=== PATIENT | female | born 1980 | race Caucasian/White ===

== ENCOUNTER 2018-02-26 17:02 | Emergency (ER) | payer BC ==
[~2018-02-26] VITALS: Ht 170.2 cm; Wt 64.0 kg
[~2018-02-26 17:02] MED LIST: CARV3.122 PO; OMEP-110 PO; PRED2.5T PO; SUMA50TA4 PO; xarelto
[2018-02-26 18:00] LABS: BASOPHILS # (AUTO) 0.02 x10^3/uL (0-0.1); BASOPHILS % (AUTO) 0 % (0-1); EOSINOPHILS # (AUTO) 0.07 x10^3/uL (0-0.4); EOSINOPHILS % (AUTO) 1 % (1-7); LYMPHOCYTES # (AUTO) 3.11 x10^3/uL (1-3.4); LYMPHOCYTES % (AUTO) 30 % (22-44); MD NO; MEAN CORPUSCULAR HEMOGLOBIN 32.2 pg (27.0-34.8); MEAN CORPUSCULAR HGB CONC 33.4 g/dL (32.4-35.8); MEAN CORPUSCULAR VOLUME 96.3 fL (80-100); MEAN PLATELET VOLUME 8.4 fL (7.4-10.4); MONOCYTES # (AUTO) 0.77 x10^3/uL (0.2-0.8); MONOCYTES % (AUTO) 7 % (2-9); NEUTROPHILS # (AUTO) 6.57 x10^3/uL (1.8-6.8); NEUTROPHILS % (AUTO) 62 % (42-75); PLATELET COUNT 231 x10^3/uL (130-400); RED BLOOD COUNT 4.87 x10^6/uL (3.82-5.3); RED CELL DISTRIBUTION WIDTH 13.8 % (9.6-15.2)
[2018-02-26 18:11] LABS: ALANINE AMINOTRANSFERASE 18 U/L (12-78); ALBUMIN 3.7 g/dL (3.4-5.0); ANION GAP 7 mmol/L (5-15); CALCIUM 8.7 mg/dL (8.5-10.1); CHLORIDE 107 mmol/L (98-107); CREATININE 0.59 mg/dL (0.55-1.02)
[2018-02-26 18:16] LABS: ALKALINE PHOSPHATASE 49 U/L (45-117); BILIRUBIN,TOTAL 0.8 mg/dL (0.2-1.0); TOTAL PROTEIN 7.3 g/dL (6.4-8.2)
[2018-02-26] MEDS ORDERED: OMNIPAQUE 350 MG/ML, 100ML BOTTLE ONE ×2 (18:55→20:09)
[2018-02-26 19:09] VITALS: BP 118/96
[2018-02-26] MEDS ORDERED: HYDROcodone/APAP 5/325 TABLET ONE (19:35)
[2018-02-26] MEDS ORDERED: HYDROcodone/APAP 5/325 TABLET PO ONE (20:00)
== END 2018-02-26 20:00 | disposition home or self-care (01) ==
LOC: ED 19:55
DX: S20.211A Contusion of right front wall of thorax, initial encounter (principal); S60.211A Contusion of right wrist, initial encounter; S60.221A Contusion of right hand, initial encounter; S30.1XXA Contusion of abdominal wall, initial encounter; I10 Essential (primary) hypertension; I48.91 Unspecified atrial fibrillation; I25.2 Old myocardial infarction; F31.9 Bipolar disorder, unspecified; F17.200 Nicotine dependence, unspecified, uncomplicated; Y04.0XXA Assault by unarmed brawl or fight, initial encounter; Y93.89 Activity, other specified; Y92.098 Other place in other non-institutional residence as the place of occurrence of the external cause; Y99.8 Other external cause status
CPT/HCPCS: 36415; 71046; 73110; 73130; 74177; 80053; 84702; 85025; 99285; Q9967

== ENCOUNTER 2018-05-01 11:28 | Inpatient (IN) | payer BC ==
[~2018-05-01] VITALS: Ht 172.7 cm; Wt 66.2 kg
[2018-05-01 12:26] LABS: BASOPHILS # (AUTO) 0.05 x10^3/uL (0-0.1); BASOPHILS % (AUTO) 0 % (0-1); EOSINOPHILS # (AUTO) 0.02 x10^3/uL (0-0.4); EOSINOPHILS % (AUTO) 0 % (1-7); LYMPHOCYTES # (AUTO) 2.16 x10^3/uL (1-3.4); LYMPHOCYTES % (AUTO) 13 % (22-44); MD NO; MEAN CORPUSCULAR HEMOGLOBIN 33.2 pg (27.0-34.8); MEAN CORPUSCULAR HGB CONC 34.9 g/dL (32.4-35.8); MEAN PLATELET VOLUME 8.8 fL (7.4-10.4); MONOCYTES # (AUTO) 1.39 x10^3/uL (0.2-0.8); MONOCYTES % (AUTO) 8 % (2-9); NEUTROPHILS # (AUTO) 13.49 x10^3/uL (1.8-6.8); NEUTROPHILS % (AUTO) 79 % (42-75); PLATELET COUNT 247 x10^3/uL (130-400); RED BLOOD COUNT 4.91 x10^6/uL (3.82-5.3); RED CELL DISTRIBUTION WIDTH 12.9 % (9.6-15.2)
[2018-05-01] MEDS ORDERED: METOPROLOL 1 MG/ML, 5ML IVPush PRN (12:30)
[2018-05-01] MEDS ORDERED: SODIUM CHLORIDE 0.9% 1,000ML IVBOLUS ONE (12:30)
[2018-05-01] MEDS ORDERED: KETOROLAC 30 MG/1 ML IVPush ONE (12:30)
[2018-05-01] MEDS ORDERED: MORPHINE SULFATE 4 MG/ML, 1ML IVPush PRN (12:30)
[2018-05-01 12:38] LABS: ANION GAP 10 mmol/L (5-15); CALCIUM 8.9 mg/dL (8.5-10.1); CHLORIDE 100 mmol/L (98-107); CREATININE 0.56 mg/dL (0.55-1.02)
[2018-05-01 12:42] LABS: TROPONIN I < 0.015 ng/mL (0.000-0.045)
[2018-05-01] MEDS ORDERED: MORPHINE SULFATE 4 MG/ML, 1ML ONE (12:52)
[2018-05-01] MEDS ORDERED: METOPROLOL 1 MG/ML, 5ML ONE (12:52)
[2018-05-01] MEDS ORDERED: KETOROLAC 30 MG/1 ML ONE (12:52)
[2018-05-01] MEDS ORDERED: POTASSIUM CHLORIDE 20 MEQ TAB.ER.PRT PO ONE ×2 (13:00→15:30)
[2018-05-01] MEDS ORDERED: OMNIPAQUE 350 MG/ML, 100ML BOTTLE ONE (13:20)
[2018-05-01] MEDS ORDERED: HEPARIN 5,000 UNITS/ML, 1ML IV ONE (14:00)
[2018-05-01] MEDS ORDERED: HEPARIN 5,000 UNITS/ML, 1ML ONE (14:06)
[2018-05-01] MEDS ORDERED: ASPI-496 PO (14:15)
[2018-05-01] MEDS ORDERED: AMLO2.5T PO (14:17)
[2018-05-01] MEDS ORDERED: HEPARIN 25,000 UNITS/500ML PMX 500 ML ONE (14:26)
[2018-05-01] MEDS: HEPARIN 25,000 UNITS/500ML PMX 500 ML IV PRN (14:36)
[2018-05-01] MEDS ORDERED: TEMAZEPAM 15 MG CAPSULE PO PRN (15:00)
[2018-05-01] MEDS ORDERED: ONDANSETRON 2MG/ML, 2ML IVPush PRN (15:00)
[2018-05-01] MEDS ORDERED: hydrALAzine 20 MG/ML, 1ML IVPush PRN (15:00)
[2018-05-01] MEDS ORDERED: ACETAMINOPHEN 325 MG TABLET PO PRN (15:00)
[2018-05-01] MEDS ORDERED: HYDROcodone/APAP 5/325 TABLET PO PRN (15:00)
[2018-05-01] MEDS ORDERED: POTASSIUM CHLORIDE 20 MEQ TAB.ER.PRT ONE ×2 (15:26→21:04)
[2018-05-01] MEDS ORDERED: SODIUM CHLORIDE 0.9% 1,000 ML IV SCH (15:30)
[2018-05-01 17:02] VITALS: BP 106/73
[2018-05-01] MEDS: morphine SULFATE 10 MG/ML, 1ML IVPush PRN ×2 (17:14→23:44)
[2018-05-01] MEDS: DILTIAZEM 30 MG TABLET PO SCH ×2 (17:15→22:42)
[2018-05-01] MEDS: NICOTINE 21 MG/24 HR PATCH.TD24 TD SCH (17:15)
[2018-05-01] MEDS: HEPARIN 5,000 UNITS/ML, 1ML IV PRN (21:30)
[2018-05-01 21:49] VITALS: BP 99/77
[2018-05-01 22:04] LABS: CULTURE INDICATED? YES; MICROSCOPIC INDICATED
[2018-05-02 02:14] VITALS: BP 92/72
[2018-05-02] MEDS: DILTIAZEM 30 MG TABLET PO SCH ×4 (03:30→21:14)
[2018-05-02 06:14] LABS: ANION GAP 9 mmol/L (5-15); CHLORIDE 104 mmol/L (98-107); CREATININE 0.33 mg/dL (0.55-1.02)
[2018-05-02 06:58] VITALS: BP 102/72
[2018-05-02] MEDS: morphine SULFATE 10 MG/ML, 1ML IVPush PRN ×2 (09:07→20:28)
[2018-05-02] MEDS: HEPARIN 5,000 UNITS/ML, 1ML IV PRN (10:22)
[2018-05-02] MEDS: KETOROLAC 30 MG/1 ML IVPush PRN (11:34)
[2018-05-02 12:20] VITALS: BP 99/77
[2018-05-02] MEDS: NICOTINE 21 MG/24 HR PATCH.TD24 TD SCH (15:47)
[2018-05-02 15:51] VITALS: BP 99/75
[2018-05-02] MEDS: HEPARIN 25,000 UNITS/500ML PMX 500 ML IV PRN (18:09)
[2018-05-02 18:44] VITALS: BP 99/65
[2018-05-02] MEDS ORDERED: NITROGLYCERIN 0.4 MG BOTTLE (25 TABS) SL PRN (21:30)
[2018-05-02] MEDS ORDERED: BENZONATATE 100 MG CAPSULE PO PRN (22:00)
[2018-05-03] MEDS: HEPARIN 5,000 UNITS/ML, 1ML IV PRN (00:23)
[2018-05-03 03:10] VITALS: BP 108/78
[2018-05-03] MEDS: DILTIAZEM 30 MG TABLET PO SCH ×4 (03:24→21:44)
[2018-05-03] MEDS: morphine SULFATE 10 MG/ML, 1ML IVPush PRN ×5 (04:37→21:44)
[2018-05-03 06:55] VITALS: BP 118/82
[2018-05-03] MEDS: NICOTINE 21 MG/24 HR PATCH.TD24 TD SCH (12:59)
[2018-05-03 15:33] VITALS: BP 98/61
[2018-05-03] MEDS: HEPARIN 25,000 UNITS/500ML PMX 500 ML IV PRN (18:11)
[2018-05-03 19:09] VITALS: BP 108/74
[2018-05-04 00:43] VITALS: BP 110/81
[2018-05-04] MEDS: morphine SULFATE 10 MG/ML, 1ML IVPush PRN ×3 (00:45→08:35)
[2018-05-04] MEDS: DILTIAZEM 30 MG TABLET PO SCH ×4 (04:03→22:10)
[2018-05-04 06:48] VITALS: BP 94/71
[2018-05-04] MEDS ORDERED: MORPHINE SULFATE 4 MG/ML, 1ML IVPush PRN (13:30)
[2018-05-04 13:38] VITALS: BP 104/80
[2018-05-04] MEDS ORDERED: APIXABAN 5 MG TABLET ONE (15:33)
[2018-05-04] MEDS: NICOTINE 21 MG/24 HR PATCH.TD24 TD SCH (15:35)
[2018-05-04] MEDS: APIXABAN 5 MG TABLET PO SCH (15:35)
[2018-05-04] MEDS: KETOROLAC 30 MG/1 ML IVPush PRN ×2 (15:45→23:36)
[2018-05-04 18:38] VITALS: BP 103/72
[2018-05-04] MEDS: CEFDINIR 300 MG CAPSULE PO SCH (22:10)
[2018-05-05 00:21] VITALS: BP 105/75
[2018-05-05] MEDS: DILTIAZEM 30 MG TABLET PO SCH ×2 (04:04→09:52)
[2018-05-05 07:35] VITALS: BP 112/80
[2018-05-05] MEDS: CEFDINIR 300 MG CAPSULE PO SCH (09:52)
[2018-05-05] MEDS: APIXABAN 5 MG TABLET PO SCH (09:52)
[2018-05-05] MEDS ORDERED: KETOROLAC 10MG TABLET PO PRN (10:00)
[2018-05-05] MEDS ORDERED: DILT120C2 PO (13:17)
[2018-05-05] MEDS ORDERED: CEFD300C37 PO (13:17)
[2018-05-05] MEDS ORDERED: KETO10TA PO (13:17)
[2018-05-05] MEDS ORDERED: NICO-487 TD (13:17)
[2018-05-05] MEDS ORDERED: APIX5TAB PO (13:17)
== END 2018-05-05 14:29 | disposition home or self-care (01) | DRG 308 ==
LOC: ED 13:42 → EDIP 14:26 → SUATTDRO 14:40 → 5SO 16:04
PROVIDERS: ADMIT Internal Medicine; ATTEND Internal Medicine
DX: I48.0 Paroxysmal atrial fibrillation (principal); I26.99 Other pulmonary embolism without acute cor pulmonale; N39.0 Urinary tract infection, site not specified; I25.2 Old myocardial infarction; I10 Essential (primary) hypertension; F31.9 Bipolar disorder, unspecified; F17.200 Nicotine dependence, unspecified, uncomplicated; E87.6 Hypokalemia; I48.2 Chronic atrial fibrillation; I73.00 Raynaud's syndrome without gangrene; J44.9 Chronic obstructive pulmonary disease, unspecified; K21.9 Gastro-esophageal reflux disease without esophagitis; M32.9 Systemic lupus erythematosus, unspecified; Z82.49 Family history of ischemic heart disease and other diseases of the circulatory system; Z88.1 Allergy status to other antibiotic agents; Z88.5 Allergy status to narcotic agent; Z88.8 Allergy status to other drugs, medicaments and biological substances; F15.10 Other stimulant abuse, uncomplicated
CPT/HCPCS: 36415; 71046; 71275; 80048; 81001; 82040; 83605; 84145; 84484; 85025; 85520; 87040; 87070; 87086; 87205; 93005; 93306; 96374; 96375; 99291; J1644; J1885; Q9967; J2270; J7030

== ENCOUNTER 2018-07-27 01:17 | Emergency (ER) | payer BC ==
[~2018-07-27] VITALS: Ht 172.7 cm; Wt 61.8 kg
[~2018-07-27 01:17] MED LIST changes: +AMLO2.5T3 PO; +APIX5TAB PO; +ASPI-496 PO; +CEFD300C37 PO; +DILT120C2 PO; +KETO10TA PO; +NICO-487 TD
[2018-07-27] MEDS ORDERED: SODIUM CHLORIDE 0.9% 1,000ML IVBOLUS ONE (02:30)
[2018-07-27] MEDS ORDERED: SODIUM CHLORIDE FLUSH 10ML SYR IVF ONE (02:30)
[2018-07-27 02:53] LABS: BASOPHILS # (AUTO) 0.02 x10^3/uL (0-0.1); BASOPHILS % (AUTO) 1 % (0-1); EOSINOPHILS # (AUTO) 0.02 x10^3/uL (0-0.4); EOSINOPHILS % (AUTO) 0 % (1-7); LYMPHOCYTES # (AUTO) 2.65 x10^3/uL (1-3.4); LYMPHOCYTES % (AUTO) 51 % (22-44); MD NO; MEAN CORPUSCULAR HEMOGLOBIN 34.5 pg (27.0-34.8); MEAN CORPUSCULAR HGB CONC 34.1 g/dL (32.4-35.8); MEAN CORPUSCULAR VOLUME 101.1 fL (80-100); MEAN PLATELET VOLUME 8.1 fL (7.4-10.4); MONOCYTES # (AUTO) 0.43 x10^3/uL (0.2-0.8); MONOCYTES % (AUTO) 8 % (2-9); NEUTROPHILS # (AUTO) 2.13 x10^3/uL (1.8-6.8); NEUTROPHILS % (AUTO) 41 % (42-75); PLATELET COUNT 166 x10^3/uL (130-400); RED BLOOD COUNT 4.29 x10^6/uL (3.82-5.3); RED CELL DISTRIBUTION WIDTH 14.4 % (9.6-15.2)
[2018-07-27 03:02] LABS: ALANINE AMINOTRANSFERASE 99 U/L (12-78); ALBUMIN 3.1 g/dL (3.4-5.0); ANION GAP 12 mmol/L (5-15); CALCIUM 7.9 mg/dL (8.5-10.1); CHLORIDE 111 mmol/L (98-107)
[2018-07-27 03:06] LABS: ALKALINE PHOSPHATASE 73 U/L (45-117); BILIRUBIN,TOTAL 0.4 mg/dL (0.2-1.0); TOTAL PROTEIN 6.3 g/dL (6.4-8.2); TROPONIN I 0.038 ng/mL (0.000-0.045)
[2018-07-27] MEDS ORDERED: AMLO5TAB7 PO (03:32)
[2018-07-27 04:52] VITALS: BP 132/86
== END 2018-07-27 04:56 | disposition home or self-care (01) ==
LOC: ED 02:23
DX: I48.2 Chronic atrial fibrillation (principal); I25.2 Old myocardial infarction; I10 Essential (primary) hypertension; F31.9 Bipolar disorder, unspecified; F17.210 Nicotine dependence, cigarettes, uncomplicated; F12.10 Cannabis abuse, uncomplicated; R20.2 Paresthesia of skin; Z86.711 Personal history of pulmonary embolism
CPT/HCPCS: 36415; 70450; 71045; 80053; 84484; 85025; 93005; 96360; 99285; J7030

== ENCOUNTER 2018-11-10 12:51 | Emergency (ER) | payer SELFPAY ==
[~2018-11-10] VITALS: Ht 172.7 cm; Wt 63.0 kg
[~2018-11-10 12:51] MED LIST changes: +AMLO-150 PO; -AMLO2.5T3 PO; +AMLO2.5T5 PO
--- NOTE | 2018-11-10 13:20 | NUR ---
assumed care of pt. attempted to enter room to assess pt , pt in RAD
--- NOTE | 2018-11-10 13:26 | NUR ---
pt still in RAD
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
--- NOTE | 2018-11-10 14:05 | NUR ---
Lyndsay VITALE at bedside for recheck
--- NOTE | 2018-11-10 14:15 | NUR ---
attempted to enter room to D/C pt. pt refusing D/C. states that she is upset that her L ankle was not evaluated. Lyndsay VITALE notified and has returned to bedside for eval. pt now c/o pain and swelling to L ankle and hand and states that it needs to be evaluated.
--- NOTE | 2018-11-10 14:22 | NUR ---
xray at bedside
--- NOTE | 2018-11-10 14:48 | NUR ---
pt dozing. easily arousable. updated on POC
[2018-11-10 16:13] VITALS: BP 120/92
== END 2018-11-10 16:16 | disposition home or self-care (01) ==
LOC: ED 13:41
DX: S93.402A Sprain of unspecified ligament of left ankle, initial encounter (principal); S60.222A Contusion of left hand, initial encounter; B34.9 Viral infection, unspecified; I48.2 Chronic atrial fibrillation; I25.2 Old myocardial infarction; I10 Essential (primary) hypertension; X58.XXXA Exposure to other specified factors, initial encounter; Y93.89 Activity, other specified; Y92.89 Other specified places as the place of occurrence of the external cause; Y99.8 Other external cause status
CPT/HCPCS: 71046; 93005; 99283

== ENCOUNTER 2018-12-10 20:17 | Inpatient (IN) | payer OTHER ==
[~2018-12-10] VITALS: Ht 172.7 cm; Wt 63.2 kg
[2018-12-10] MEDS ORDERED: SODIUM CHLORIDE FLUSH 10ML SYR IVF ONE ×2 (20:30→23:00)
[2018-12-10 22:21] LABS: BASOPHILS # (AUTO) 0.03 x10^3/uL (0-0.1); BASOPHILS % (AUTO) 0 % (0-1); EOSINOPHILS # (AUTO) 0.08 x10^3/uL (0-0.4); EOSINOPHILS % (AUTO) 1 % (1-7); LYMPHOCYTES # (AUTO) 4.07 x10^3/uL (1-3.4); LYMPHOCYTES % (AUTO) 53 % (22-44); MD NO; MEAN CORPUSCULAR HGB CONC 33.2 g/dL (32.4-35.8); MEAN CORPUSCULAR VOLUME 102.2 fL (80-100); MEAN PLATELET VOLUME 8.5 fL (7.4-10.4); MONOCYTES # (AUTO) 0.64 x10^3/uL (0.2-0.8); MONOCYTES % (AUTO) 8 % (2-9); NEUTROPHILS # (AUTO) 2.85 x10^3/uL (1.8-6.8); NEUTROPHILS % (AUTO) 37 % (42-75); PLATELET COUNT 184 x10^3/uL (130-400); RED BLOOD COUNT 4.62 x10^6/uL (3.82-5.3); RED CELL DISTRIBUTION WIDTH 14.8 % (9.6-15.2)
--- NOTE | 2018-12-10 22:30 | NUR ---
PT IN GOWN IN [facility]. IV ACCESS ESTABLISHED. PT ATTACHED TO MEDICAL BILLER AND VS MACHINES. VSS. PT EDUCATED ON PLAN OF CARE, AND VERBALIZES UNDERSTANDING. CALL LIGHT IS WITHIN REACH AT THIS TIME.
[2018-12-10 22:32] LABS: ALBUMIN 3.1 g/dL (3.4-5.0); ANION GAP 5 mmol/L (5-15); CALCIUM 7.7 mg/dL (8.5-10.1); CHLORIDE 112 mmol/L (98-107); CREATININE 0.58 mg/dL (0.55-1.02)
[2018-12-10 22:36] LABS: TROPONIN I 0.104 ng/mL (0.000-0.045)
--- NOTE | 2018-12-10 22:59 | NUR ---
PT TO CT VIA [facility].
[2018-12-10] MEDS ORDERED: OMNIPAQUE 350 MG/ML, 100ML BOTTLE ONE (23:05)
[2018-12-10] MEDS ORDERED: ONDANSETRON ODT 4 MG ONE (23:08)
[2018-12-10] MEDS ORDERED: ONDANSETRON 2MG/ML, 2ML IVPush ONE (23:30)
--- NOTE | 2018-12-11 00:01 | NUR ---
PT VSS AND UPDATED IN EMR.
[2018-12-11] MEDS ORDERED: Enoxaparin 1 mg/kg protocol SQ SCH (00:30)
[2018-12-11] MEDS ORDERED: NITROGLYCERIN 0.4 MG BOTTLE (25 TABS) SL PRN (00:30)
[2018-12-11] MEDS ORDERED: ACETAMINOPHEN 325 MG TABLET PO PRN (00:30)
[2018-12-11] MEDS ORDERED: LABETALOL 5MG/ML, 20ML IVPush SCH (00:30)
[2018-12-11] MEDS ORDERED: LISINOPRIL 5 MG TABLET PO ONE (00:30)
[2018-12-11 00:55] LABS: TROPONIN I 0.103 ng/mL (0.000-0.045)
[2018-12-11] MEDS ORDERED: CHLORDIAZEPOXIDE 25 MG CAPSULE PO PRN (01:00)
[2018-12-11] MEDS ORDERED: POTASSIUM CHLORIDE 20 MEQ TAB.ER.PRT PO ONE (01:00)
[2018-12-11] MEDS: LABETALOL 5 MG/ML SYRINGE IVPush SCH ×3 (01:00→15:49)
[2018-12-11] MEDS ORDERED: LISINOPRIL 5 MG TABLET ONE (01:41)
[2018-12-11] MEDS ORDERED: ENOXAPARIN 60 MG/0.6 ML ONE ×2 (01:41→12:33)
[2018-12-11] MEDS ORDERED: POTASSIUM CHLORIDE 20 MEQ TAB.ER.PRT ONE (01:41)
[2018-12-11] MEDS ORDERED: ENOXAPARIN 60 MG/0.6 ML SQ SCH ×2 (02:30→12:30)
--- NOTE | 2018-12-11 02:30 | NUR ---
PT PROVIDED SANDWICH FROM [employer] PER REQUEST
--- NOTE | 2018-12-11 04:37 | NUR ---
PT SLEEPING IN [facility] AT THIS TIME; PRINCESS. PT HAS CALL LIGHT WITHIN REACH.
[2018-12-11] MEDS ORDERED: ONDANSETRON 2MG/ML, 2ML ONE (05:10)
[2018-12-11] MEDS ORDERED: MORPHINE SULFATE 4 MG/ML, 1ML ONE ×2 (05:11→10:27)
[2018-12-11] MEDS ORDERED: MORPHINE SULFATE 4 MG/ML, 1ML IVPush PRN (05:30)
[2018-12-11] MEDS ORDERED: ONDANSETRON 2MG/ML, 2ML IVPush ONE (05:30)
[2018-12-11] MEDS: ASPIRIN 325 MG TABLET EC PO SCH (06:00)
[2018-12-11] MEDS: CARVEDILOL 3.125 MG TABLET PO SCH ×2 (06:00→18:06)
[2018-12-11] MEDS ORDERED: CARVEDILOL 3.125 MG TABLET ONE (06:22)
[2018-12-11] MEDS ORDERED: ASPIRIN 325 MG TABLET EC ONE (06:22)
--- NOTE | 2018-12-11 06:36 | NUR ---
PT MEDICATED PER MAR.
[2018-12-11 07:02] LABS: TROPONIN I 0.112 ng/mL (0.000-0.045)
--- NOTE | 2018-12-11 07:03 | NUR ---
REPORT OF PT TO GISSEL GIL.
--- NOTE | 2018-12-11 07:25 | NUR ---
PT. REMAINS MONITORED AND IS RESTING WITHOUT CONCERNS. PT. WAS GIVEN A BLANKET FOR WARMTH AN PO FLUIDS. SIDERAILS REMAIN UP X 2 WITH THE CALL LIGHT IN PLACE.
--- NOTE | 2018-12-11 08:00 | NUR ---
cardiac rhythm strip printed and placed on chart
[2018-12-11] MEDS ORDERED: FUROSEMIDE 20 MG/2 ML ONE (08:02)
[2018-12-11] MEDS: FUROSEMIDE 20 MG/2 ML IV SCH ×2 (08:08→18:05)
--- NOTE | 2018-12-11 08:31 | NUR ---
PT. WAS AMBULATORY TO THE RESTROOM. PT. WAS GIVEN BREAKFAST. PT. REMAINS MONITORED.
--- NOTE | 2018-12-11 10:02 | NUR ---
PT. IS RESTING WITHOUT CONCERNS AT THIS TIME. PT. REMAINS MONITORED.
[2018-12-11] MEDS: morphine SULFATE 10 MG/ML, 1ML IVPush PRN ×3 (10:30→20:46)
--- NOTE | 2018-12-11 11:22 | NUR ---
PT. REMAINS MONITORED. VSS. PT. WAS MEDICATED FOR FURTHER C/O PAIN. NO OTHER CHANGES AT THIS TIME.
--- NOTE | 2018-12-11 13:53 | NUR ---
NO CHANGE AT THIS TIME.
[2018-12-11] MEDS ORDERED: MAALOX/HYOSCYAMINE/LIDOCAINE 45 ML BTL ONE (14:09)
--- NOTE | 2018-12-11 14:23 | NUR ---
PT. WAS MEDICATED FOR REFLUX. PT. WAS GIVEN A COMB, TOOTHBRUSH AND TOOTHPASTE.
[2018-12-11] MEDS ORDERED: MAALOX/HYOSCYAMINE/LIDOCAINE 45 ML BTL PO ONE (14:30)
--- NOTE | 2018-12-11 14:52 | NUR ---
assumed care of pt while primary rn at lunch. us at bedside.
--- NOTE | 2018-12-11 15:25 | NUR ---
REPORT CALLED. PT. IS READY FOR TRANSPORT.
[2018-12-11 15:54] VITALS: BP 123/86
[2018-12-11] MEDS ORDERED: DILTIAZEM 125 MG in SODIUM CHLORIDE 0.9% 100 ML IV SCH (16:30)
[2018-12-11 17:00] VITALS: BP 116/85
[2018-12-11] MEDS ORDERED: LORazepam 2 MG/ML, 1ML IVPush PRN (17:00)
[2018-12-11 17:37] LABS: MICROSCOPIC INDICATED
[2018-12-11 17:42] LABS: AMPHETAMINE SCREEN, URINE Negative (Negative); BARBITURATE SCREEN, URINE Negative (Negative); BENZODIAZEPINE SCREEN, URINE Negative (Negative); CANNABINOID SCREEN, URINE Positive (Negative); COCAINE SCREEN, URINE Negative (Negative); METHADONE SCREEN, URINE Negative (Negative); OPIATE SCREEN, URINE Positive (Negative)
[2018-12-11 17:44] LABS: CULTURE INDICATED? YES
[2018-12-11] MEDS ORDERED: GADOBUTROL 7.5 MMOL/7.5 ML PFS ONE (17:54)
[2018-12-11 18:06] VITALS: BP 123/89
[2018-12-11] MEDS: CEFTRIAXONE PMX 2GM/50ML 50 ML IV SCH (20:26)
[2018-12-11] MEDS: DOXYCYCLINE 100MG TABLET PO SCH (20:29)
[2018-12-11 20:33] VITALS: BP 121/68
[2018-12-11] MEDS: APIXABAN 5 MG TABLET PO SCH (20:46)
[2018-12-12 01:42] VITALS: BP 85/59
[2018-12-12] MEDS: GUAIFENESIN 200 MG TABLET PO PRN ×2 (02:21→11:20)
[2018-12-12 03:29] VITALS: BP 104/70
[2018-12-12 05:36] LABS: BASOPHILS # (AUTO) 0.03 x10^3/uL (0-0.1); BASOPHILS % (AUTO) 0 % (0-1); EOSINOPHILS # (AUTO) 0.08 x10^3/uL (0-0.4); EOSINOPHILS % (AUTO) 1 % (1-7); LYMPHOCYTES # (AUTO) 2.27 x10^3/uL (1-3.4); LYMPHOCYTES % (AUTO) 33 % (22-44); MD NO; MEAN CORPUSCULAR HGB CONC 33.7 g/dL (32.4-35.8); MEAN CORPUSCULAR VOLUME 101.1 fL (80-100); MEAN PLATELET VOLUME 9.4 fL (7.4-10.4); MONOCYTES % (AUTO) 7 % (2-9); NEUTROPHILS # (AUTO) 3.94 x10^3/uL (1.8-6.8); NEUTROPHILS % (AUTO) 58 % (42-75); PLATELET COUNT 128 x10^3/uL (130-400); RED CELL DISTRIBUTION WIDTH 14.1 % (9.6-15.2)
[2018-12-12 05:43] LABS: ANION GAP 6 mmol/L (5-15); CALCIUM 7.7 mg/dL (8.5-10.1); CHLORIDE 102 mmol/L (98-107); CHOLESTEROL, TOTAL 149 mg/dL (140-239); CREATININE 0.56 mg/dL (0.55-1.02); TRIGLYCERIDES 110 mg/dL (50-200); VLDL CHOLESTEROL 22 mg/dL (0-25)
[2018-12-12 05:53] LABS: CHOL/HDL RATIO 4.1; HDL CHOL % 24 % (28-40); HDL CHOLESTEROL (DIRECT) 36 mg/dL (40-60); LDL CHOLESTEROL,CALCULATED 91 mg/dL (54-169); LDL/HDL RATIO 2.5 (0.5-3.0)
[2018-12-12 06:22] VITALS: BP 110/72
[2018-12-12] MEDS: ASPIRIN 325 MG TABLET EC PO SCH (06:29)
[2018-12-12] MEDS: CARVEDILOL 3.125 MG TABLET PO SCH ×2 (06:29→18:12)
[2018-12-12] MEDS ORDERED: REGADENOSON 0.4 MG/5 ML SYRINGE ONE (08:51)
[2018-12-12] MEDS: DOXYCYCLINE 100MG TABLET PO SCH ×2 (11:20→21:21)
[2018-12-12] MEDS: APIXABAN 5 MG TABLET PO SCH ×2 (11:21→21:21)
[2018-12-12] MEDS: FUROSEMIDE 20 MG/2 ML IV SCH ×2 (11:21→18:13)
[2018-12-12] MEDS: morphine SULFATE 10 MG/ML, 1ML IVPush PRN ×2 (11:32→22:57)
[2018-12-12 13:13] VITALS: BP 112/83
[2018-12-12] MEDS: CEFTRIAXONE PMX 2GM/50ML 50 ML IV SCH (18:13)
[2018-12-12] MEDS: NICOTINE 21 MG/24 HR PATCH.TD24 TD SCH (19:28)
[2018-12-12 19:58] VITALS: BP 110/75
[2018-12-13 01:48] VITALS: BP 118/82
[2018-12-13] MEDS: CARVEDILOL 3.125 MG TABLET PO SCH ×2 (05:15→18:46)
[2018-12-13 06:48] VITALS: BP 122/91
[2018-12-13] MEDS: SPIRONOLACTONE 25 MG TABLET PO SCH (08:44)
[2018-12-13] MEDS: FUROSEMIDE 20 MG/2 ML IV SCH ×2 (08:44→18:46)
[2018-12-13] MEDS: DOXYCYCLINE 100MG TABLET PO SCH (08:44)
[2018-12-13] MEDS: APIXABAN 5 MG TABLET PO SCH ×2 (08:45→21:05)
[2018-12-13] MEDS: LISINOPRIL 5 MG TABLET PO SCH (08:45)
[2018-12-13] MEDS: morphine SULFATE 10 MG/ML, 1ML IVPush PRN ×2 (10:55→21:06)
[2018-12-13 11:02] LABS: ANION GAP 5 mmol/L (5-15); CALCIUM 8.1 mg/dL (8.5-10.1); CHLORIDE 102 mmol/L (98-107)
[2018-12-13 11:03] LABS: CREATININE 0.59 mg/dL (0.55-1.02)
[2018-12-13] MEDS ORDERED: MAGNESIUM SULFATE PMX 2GM/50ML 50 ML IV ONE (12:00)
[2018-12-13] MEDS ORDERED: POTASSIUM CHLORIDE 20 MEQ TAB.ER.PRT PO ONE (12:00)
[2018-12-13 13:21] VITALS: BP 120/89
[2018-12-13] MEDS: NICOTINE 21 MG/24 HR PATCH.TD24 TD SCH (18:46)
[2018-12-13 21:36] VITALS: BP 110/76
[2018-12-14 01:30] VITALS: BP 133/97
[2018-12-14] MEDS: CARVEDILOL 3.125 MG TABLET PO SCH ×2 (05:16→17:52)
[2018-12-14 07:24] VITALS: BP 103/73
[2018-12-14 08:00] LABS: ALBUMIN 2.5 g/dL (3.4-5.0); ANION GAP 2 mmol/L (5-15); CALCIUM 7.9 mg/dL (8.5-10.1); CHLORIDE 103 mmol/L (98-107)
[2018-12-14 08:30] VITALS: BP 117/78
[2018-12-14] MEDS: APIXABAN 5 MG TABLET PO SCH ×2 (08:33→20:07)
[2018-12-14] MEDS: SPIRONOLACTONE 25 MG TABLET PO SCH (08:34)
[2018-12-14] MEDS: LISINOPRIL 5 MG TABLET PO SCH (08:34)
[2018-12-14] MEDS: NICOTINE 21 MG/24 HR PATCH.TD24 TD SCH (08:34)
[2018-12-14] MEDS: FUROSEMIDE 20 MG/2 ML IV SCH ×2 (08:35→17:53)
[2018-12-14] MEDS: morphine SULFATE 10 MG/ML, 1ML IVPush PRN ×2 (12:22→22:24)
[2018-12-14 13:16] VITALS: BP 114/79
[2018-12-14 21:13] VITALS: BP 94/62
[2018-12-15 02:38] VITALS: BP 100/73
[2018-12-15] MEDS: CARVEDILOL 3.125 MG TABLET PO SCH (05:18)
[2018-12-15 07:40] VITALS: BP 105/70
[2018-12-15] MEDS ORDERED: FUROSEMIDE 20 MG TABLET PO SCH (08:00)
[2018-12-15 09:05] LABS: ALBUMIN 2.8 g/dL (3.4-5.0); ANION GAP 7 mmol/L (5-15); CALCIUM 8.2 mg/dL (8.5-10.1); CHLORIDE 103 mmol/L (98-107); CREATININE 0.66 mg/dL (0.55-1.02)
[2018-12-15] MEDS: APIXABAN 5 MG TABLET PO SCH (09:16)
[2018-12-15] MEDS: LISINOPRIL 5 MG TABLET PO SCH (09:16)
[2018-12-15] MEDS: SPIRONOLACTONE 25 MG TABLET PO SCH (09:16)
[2018-12-15] MEDS: NICOTINE 21 MG/24 HR PATCH.TD24 TD SCH (09:17)
[2018-12-15] MEDS ORDERED: POTASSIUM CHLORIDE 20 MEQ TAB.ER.PRT PO ONE (09:30)
[2018-12-15] MEDS ORDERED: CARVEDILOL 3.125 MG TABLET PO ONE (10:30)
[2018-12-15] MEDS: morphine SULFATE 10 MG/ML, 1ML IVPush PRN (12:09)
[2018-12-15 13:57] VITALS: BP 103/70
[2018-12-15] MEDS ORDERED: SPIR25TA PO (16:30)
[2018-12-15] MEDS ORDERED: NICO-487 TD (16:30)
[2018-12-15] MEDS ORDERED: APIX5TAB PO (16:30)
[2018-12-15] MEDS ORDERED: LISI5TAB7 PO (16:30)
[2018-12-15] MEDS ORDERED: FURO20TA3 PO (16:30)
[2018-12-15] MEDS ORDERED: CARV6.2512 PO (16:30)
[2018-12-15] MEDS ORDERED: CARVEDILOL 6.25 MG TABLET PO SCH (18:00)
[2018-12-16] MEDS ORDERED: LISINOPRIL 5 MG TABLET PO SCH (09:00)
[2018-12-16] MEDS ORDERED: SPIRONOLACTONE 25 MG TABLET PO SCH (09:00)
[2018-12-18] MEDS ORDERED: APIXABAN 5 MG TABLET PO SCH (21:00)
== END 2018-12-15 17:11 | disposition left against medical advice (07) | DRG 280 ==
LOC: ED 23:36 → EDIP 23:59 → 5SO 12-11 15:46
PROVIDERS: ADMIT Family Medicine; ATTEND Family Medicine
DX: I21.4 Non-ST elevation (NSTEMI) myocardial infarction (principal); J18.9 Pneumonia, unspecified organism; D68.69 Other thrombophilia; I31.3 Pericardial effusion (noninflammatory); I47.2 Ventricular tachycardia; J44.0 Chronic obstructive pulmonary disease with (acute) lower respiratory infection; L03.116 Cellulitis of left lower limb; N39.0 Urinary tract infection, site not specified; F10.229 Alcohol dependence with intoxication, unspecified; F17.210 Nicotine dependence, cigarettes, uncomplicated; F31.9 Bipolar disorder, unspecified; I08.1 Rheumatic disorders of both mitral and tricuspid valves; I11.0 Hypertensive heart disease with heart failure; I48.2 Chronic atrial fibrillation; I50.9 Heart failure, unspecified; I73.00 Raynaud's syndrome without gangrene; K21.9 Gastro-esophageal reflux disease without esophagitis; M32.9 Systemic lupus erythematosus, unspecified; V89.2XXA Person injured in unspecified motor-vehicle accident, traffic, initial encounter; Y92.410 Unspecified street and highway as the place of occurrence of the external cause; Z79.899 Other long term (current) drug therapy; Z79.01 Long term (current) use of anticoagulants; Z86.711 Personal history of pulmonary embolism; F12.90 Cannabis use, unspecified, uncomplicated; F15.90 Other stimulant use, unspecified, uncomplicated; Z59.9 Problem related to housing and economic circumstances, unspecified; Z71.41 Alcohol abuse counseling and surveillance of alcoholic; Z71.51 Drug abuse counseling and surveillance of drug abuser; Z53.21 Procedure and treatment not carried out due to patient leaving prior to being seen by health care provider
CPT/HCPCS: 36415; 71045; 71275; 78452; 80048; 80061; 80069; 80307; 81001; 82040; 83735; 83880; 84443; 84484; 84702; 85025; 87040; 87086; 93005; 93017; 93306; 93970; 96372; 96374; 96375; A9585; G0378; J0696; J1650; J2405; J2785; Q9967; A9502; C9898; J1940; J2270; J3475

== ENCOUNTER 2019-03-16 00:32 | Emergency (ER) | payer MEDICAID, OTHER ==
[~2019-03-16] VITALS: Ht 167.6 cm; Wt 63.0 kg
[~2019-03-16 00:32] MED LIST changes: +CARV6.2512 PO; +FURO20TA3 PO; +LISI5TAB7 PO; +SPIR25TA PO
[2019-03-16 00:36] VITALS: BP 130/84
== END 2019-03-16 00:51 | disposition home or self-care (01) ==
LOC: ED 00:45
DX: Z20.5 Contact with and (suspected) exposure to viral hepatitis (principal); F31.9 Bipolar disorder, unspecified; I48.91 Unspecified atrial fibrillation; I11.0 Hypertensive heart disease with heart failure; I50.9 Heart failure, unspecified; I25.2 Old myocardial infarction; F17.210 Nicotine dependence, cigarettes, uncomplicated; Z86.718 Personal history of other venous thrombosis and embolism
CPT/HCPCS: 36415; 86705; 86706; 86803; 87340; 87806; 99283; G0475

== ENCOUNTER 2019-05-06 21:28 | Emergency (ER) | payer MEDICAID, OTHER ==
[~2019-05-06] VITALS: Ht 170.2 cm; Wt 59.9 kg
[2019-05-06 21:31] VITALS: BP 111/76
== END 2019-05-07 00:28 | disposition home or self-care (01) ==
LOC: ED 22:58
DX: G89.11 Acute pain due to trauma (principal); M25.561 Pain in right knee; M79.642 Pain in left hand; I25.2 Old myocardial infarction; I11.0 Hypertensive heart disease with heart failure; I50.9 Heart failure, unspecified; F31.9 Bipolar disorder, unspecified; Z86.718 Personal history of other venous thrombosis and embolism; Y04.8XXA Assault by other bodily force, initial encounter; Y93.89 Activity, other specified; Y99.8 Other external cause status; Y92.009 Unspecified place in unspecified non-institutional (private) residence as the place of occurrence of the external cause
CPT/HCPCS: 99283

== ENCOUNTER 2019-08-03 06:20 | Emergency (ER) | payer MEDICAID ==
[~2019-08-03] VITALS: Ht 170.2 cm; Wt 60.8 kg
--- NOTE | 2019-08-03 06:56 | NUR ---
REPORT RECEIVED FROM GISSEL DO. ASSUMING PRIMARY CARE OF PT.
[2019-08-03] MEDS ORDERED: SODIUM CHLORIDE FLUSH 10ML SYR IVF ONE (07:00)
[2019-08-03] MEDS ORDERED: KETOROLAC 30 MG/1 ML IVPush ONE (07:00)
[2019-08-03] MEDS ORDERED: PROCHLORPERAZINE 5 MG/ML, 2ML IVPush ONE (07:00)
[2019-08-03] MEDS ORDERED: DIPHENHYDRAMINE 50 MG/ML, 1ML IVPush ONE (07:00)
[2019-08-03] MEDS ORDERED: KETOROLAC 30 MG/1 ML ONE (07:17)
[2019-08-03] MEDS ORDERED: PROCHLORPERAZINE 5 MG/ML, 2ML ONE (07:17)
[2019-08-03] MEDS ORDERED: DIPHENHYDRAMINE 50 MG/ML, 1ML ONE (07:17)
--- NOTE | 2019-08-03 07:25 | NUR ---
RN ADMINISTERED MEDICATION PER EMAR FOR 07/10 [place]. RN EXPLAINED POC. PT VERBALIZED UNDERSTANDING. AWAITING CT SCAN. CONTINOUS VS MONITORING. VSS. SON AT BEDSIDE. CALL LIGHT AND PERSONAL BELONGINGS WITHIN REACH. RN TO CONTINUE TO MONITOR.
[2019-08-03 07:35] LABS: BASOPHILS # (AUTO) 0.03 x10^3/uL (0-0.1); BASOPHILS % (AUTO) 0 % (0-1); EOSINOPHILS # (AUTO) 0.11 x10^3/uL (0-0.4); EOSINOPHILS % (AUTO) 1 % (1-7); LYMPHOCYTES # (AUTO) 2.06 x10^3/uL (1-3.4); LYMPHOCYTES % (AUTO) 22 % (22-44); MD NO; MEAN CORPUSCULAR HEMOGLOBIN 33.1 pg (27.0-34.8); MEAN CORPUSCULAR HGB CONC 33.4 g/dL (32.4-35.8); MEAN CORPUSCULAR VOLUME 99.2 fL (80-100); MEAN PLATELET VOLUME 9.1 fL (7.4-10.4); MONOCYTES # (AUTO) 0.44 x10^3/uL (0.2-0.8); MONOCYTES % (AUTO) 5 % (2-9); NEUTROPHILS # (AUTO) 6.61 x10^3/uL (1.8-6.8); NEUTROPHILS % (AUTO) 72 % (42-75); PLATELET COUNT 222 x10^3/uL (130-400); RED BLOOD COUNT 4.63 x10^6/uL (3.82-5.3); RED CELL DISTRIBUTION WIDTH 13.6 % (9.6-15.2)
--- NOTE | 2019-08-03 07:40 | NUR ---
RN PROVIDED PT WITH A BLANKET. PT STATES PAIN HAS DECREASED TO A 5/[address] SCAN.
[2019-08-03 07:44] LABS: ALBUMIN 3.5 g/dL (3.4-5.0); ANION GAP 6 mmol/L (5-15); CALCIUM 8.8 mg/dL (8.5-10.1); CHLORIDE 110 mmol/L (98-107)
[2019-08-03 07:50] LABS: ALANINE AMINOTRANSFERASE 23 U/L (12-78); ALKALINE PHOSPHATASE 51 U/L (45-117); BILIRUBIN,TOTAL 0.5 mg/dL (0.2-1.0); CREATININE 0.58 mg/dL (0.55-1.02); TOTAL PROTEIN 7.3 g/dL (6.4-8.2); TROPONIN I < 0.015 ng/mL (0.000-0.045)
--- NOTE | 2019-08-03 07:54 | NUR ---
PT ASLEEP ON GURNEY. RR EVEN AND UNLABORED. VSS.
--- NOTE | 2019-08-03 07:59 | NUR ---
PT BEING TRANSPORTED TO CT SCAN VIA [facility].
--- NOTE | 2019-08-03 08:17 | NUR ---
PT RETURNED FROM CT SCAN. PT LYING ON GURNEY WITH EYES CLOSED. LIGHTS ARE OFF IN ROOM. AWAITING RESULTS FOR CT SCAN.
[2019-08-03 08:36] LABS: CULTURE INDICATED? YES; MICROSCOPIC INDICATED
--- NOTE | 2019-08-03 08:51 | NUR ---
RN CALLED NUBIA FROM CT SCAN. RN INFORMED NUBIA THAT CT SCAN RESULTS IS NOT BEING SEEN ON MY END OR PROVIDER END. NUBIA STATED SCAN "FAILED" TWICE BUT WAS ABLE TO SEND IT OVER TO THE RADIOLOGIST. PER NUBIA SHOULD BE READ "WITHIN MINUTES" AND RESULTS SHOULD BE SEEN.
--- NOTE | 2019-08-03 09:14 | NUR ---
PROVIDER AT BEDSIDE GOING OVER RESULTS WITH PT.
--- NOTE | 2019-08-03 09:27 | NUR ---
PT BEING DISCHARGED HOME IN A STABLE CONDITION. PIV WAS REMOVED WITH TIP INTACT. DC INSTRUCTIONS WERE DISCUSSED WITH PT. PT VERBALIZED UNDERSTANDING. NO FUTHER QUESTION OR CONCERNS WERE EXPRESSED AT THAT TIME. PT AMBULATED WITH SON TO DC DESK. STEADY GAIT.
[2019-08-03 09:28] VITALS: BP 117/76
[2019-08-06] MEDS ORDERED: CLOP75TA PO (07:56)
== END 2019-08-03 09:30 | disposition home or self-care (01) ==
LOC: ED 07:06
DX: G43.909 Migraine, unspecified, not intractable, without status migrainosus (principal); N39.0 Urinary tract infection, site not specified; N64.4 Mastodynia; I25.2 Old myocardial infarction; I11.0 Hypertensive heart disease with heart failure; I50.9 Heart failure, unspecified; I48.91 Unspecified atrial fibrillation
CPT/HCPCS: 36415; 70450; 71045; 80053; 81001; 84484; 84703; 85025; 87086; 93005; 96374; 96375; 99284; J0780; J1200; J1885

== ENCOUNTER 2019-08-14 08:47 | Emergency (ER) | payer MEDICAID ==
[~2019-08-14] VITALS: Ht 170.2 cm; Wt 58.0 kg
[~2019-08-14 08:47] MED LIST changes: +CLOP75TA PO
[2019-08-14 08:53] VITALS: BP 137/91
[2019-08-14] MEDS ORDERED: MORPHINE SULFATE 4 MG/ML, 1ML ONE ×2 (09:11→10:26)
[2019-08-14] MEDS ORDERED: MAALOX/HYOSCYAMINE/LIDOCAINE 45 ML BTL ONE (09:11)
[2019-08-14] MEDS: MORPHINE SULFATE 4 MG/ML, 1ML IVPush PRN ×2 (09:21→10:34)
--- NOTE | 2019-08-14 09:21 | NUR ---
PT BIB [facility] FOR C/O N/V/D SINCE LAST NIGHT AND 06/10 ABD PAIN. PT DENIES BEING ABLE TO HOLD DOWN ANY FLUIDS SINCE LAST NIGHT. GIVEN A BOTTLE OF WATER, EMESIS X 1 WITHIN A FEW MINUTES. PT GIVEN MEDICATIONS PER MAR. DENIES ANY FURTHER NEEDS OR CONCERNS AT THIS TIME. CALL LIGHT IN REACH.
[2019-08-14] MEDS ORDERED: SODIUM CHLORIDE 0.9% 1,000ML IVBOLUS ONE (09:30)
[2019-08-14] MEDS ORDERED: MAALOX/HYOSCYAMINE/LIDOCAINE 45 ML BTL PO ONE (09:30)
[2019-08-14] MEDS ORDERED: SODIUM CHLORIDE FLUSH 10ML SYR IVF ONE (09:30)
[2019-08-14 09:32] LABS: BASOPHILS # (AUTO) 0.01 x10^3/uL (0-0.1); BASOPHILS % (AUTO) 0 % (0-1); EOSINOPHILS # (AUTO) 0.01 x10^3/uL (0-0.4); EOSINOPHILS % (AUTO) 0 % (1-7); LYMPHOCYTES # (AUTO) 1.41 x10^3/uL (1-3.4); LYMPHOCYTES % (AUTO) 24 % (22-44); MD NO; MEAN CORPUSCULAR HEMOGLOBIN 33.4 pg (27.0-34.8); MEAN CORPUSCULAR HGB CONC 34.3 g/dL (32.4-35.8); MEAN CORPUSCULAR VOLUME 97.6 fL (80-100); MEAN PLATELET VOLUME 8.8 fL (7.4-10.4); MONOCYTES # (AUTO) 0.53 x10^3/uL (0.2-0.8); MONOCYTES % (AUTO) 9 % (2-9); NEUTROPHILS % (AUTO) 67 % (42-75); PLATELET COUNT 194 x10^3/uL (130-400); RED BLOOD COUNT 4.62 x10^6/uL (3.82-5.3); RED CELL DISTRIBUTION WIDTH 13.1 % (9.6-15.2)
[2019-08-14 09:44] LABS: ALANINE AMINOTRANSFERASE 21 U/L (12-78); ALBUMIN 3.7 g/dL (3.4-5.0); ANION GAP 10 mmol/L (5-15); CHLORIDE 100 mmol/L (98-107)
[2019-08-14 09:46] LABS: ALKALINE PHOSPHATASE 46 U/L (45-117); BILIRUBIN,TOTAL 1.1 mg/dL (0.2-1.0); TOTAL PROTEIN 7.6 g/dL (6.4-8.2)
--- NOTE | 2019-08-14 09:49 | NUR ---
PT ABLE TO HOLD DOWN GI COCKTAIL, NO FURTHER EMESIS AT THIS TIME. VERBALIZES GOOD PAIN RELIEF. DENIES ANY FURTHER NEEDS OR CONCERNS, CALL LIGHT IN REACH.
== END 2019-08-14 10:38 | disposition home or self-care (01) ==
LOC: ED 10:36
DX: K52.9 Noninfective gastroenteritis and colitis, unspecified (principal); F31.9 Bipolar disorder, unspecified; I11.0 Hypertensive heart disease with heart failure; I50.9 Heart failure, unspecified; F19.90 Other psychoactive substance use, unspecified, uncomplicated; I25.2 Old myocardial infarction; I48.91 Unspecified atrial fibrillation; Z72.89 Other problems related to lifestyle; Z86.718 Personal history of other venous thrombosis and embolism
CPT/HCPCS: 36415; 80053; 83690; 85025; 96361; 96374; 96376; 99283; J2270; J7030